=== PATIENT | female | born 1975 | race American Indian/Alaskan Native ===

== ENCOUNTER 2020-05-07 18:13 | Emergency (ER) | payer SELFPAY ==
[2020-05-07 19:07] LABS: Basophils # (Auto) 0.1 K/mm3 (0.0-0.1); Basophils % (Auto) 1.1 % (0.0-1.8); Eosinophils # (Auto) 0.1 K/mm3 (0.0-0.4); Eosinophils % (Auto) 1.2 % (0.0-4.3); Hematocrit 46.3 % (30.3-42.9); Hemoglobin 15.6 gm/dl (10.1-14.3); Lymphocytes # (Auto) 3.3 K/mm3 (1.2-5.4); Lymphocytes % (Auto) 42.2 % (13.4-35.0); Mean Corpuscular HGB Conc 34 % (30-34); Mean Corpuscular Volume 95 fl (79-97); Monocytes # (Auto) 0.7 K/mm3 (0.0-0.8); Monocytes % (Auto) 8.5 % (0.0-7.3); Platelet Count 175 K/mm3 (140-440); Red Blood Count 4.87 M/mm3 (3.65-5.03); Red Cell Distribution Width 12.7 % (13.2-15.2)
[2020-05-07 19:26] LABS: Bilirubin,Urine NEG (Negative); Blood,Urine NEG (Negative); Color,Urine Amber (Yellow); Mucus,Urine 3+ /HPF; WBC,Urine < 1.0 /HPF (0.0-6.0)
[2020-05-07 19:37] LABS: Alanine Aminotransferase 83 units/L (7-56); Albumin 3.6 g/dL (3.9-5); Blood Urea Nitrogen 11 mg/dL (7-17); Calcium 9.3 mg/dL (8.4-10.2); Hemolysis Index 75
[2020-05-07 19:42] LABS: BUN/Creatinine Ratio 22
[2020-05-07 23:06] VITALS: BP 121/98
[2020-05-07] MEDS ORDERED: MORPHINE 4 MG/1 ML INJ IV ONE (23:06)
[2020-05-07] MEDS ORDERED: SODIUM CHLORIDE 0.9% 1000 ML 1,000 ML IV ONE (23:06)
[2020-05-07] MEDS ORDERED: METOCLOPRAMIDE 10 MG/2 ML INJ IV ONE (23:06)
[2020-05-07] MEDS ORDERED: FAMOTIDINE 20 MG/2 ML INJ IV ONE (23:06)
--- NOTE | 2020-05-07 23:17 | Emergency Department Report ---
HPI - General Chief Complaint: Abdominal Pain Time Seen by Provider: 05/07/20 23:05 - HPI HPI: This is a 45-year-old female presents to the emergency department with complaint of upper abdominal pain, nausea and vomiting. The nausea and vomiting has been going on for the past 4 days. The upper abdominal pain has been going on for a week but worsened over the past 2 to 3 days. Eating or drinking anything seems to make the symptoms worse. No known alleviating factors. She has not taken anything for symptoms prior to presentation. Patient appears to have a previous history of gastritis from August of last year. No primary care physician. She is a tobacco smoker but denies any illicit drug use. No recent travel or sick contacts at home. ED Past Medical Hx - Past Medical History Additional medical history: gastritis, - Social History Smoking Status: Current Every Day Smoker - Medications Home Medications: Home Medications Medication Instructions Recorded Confirmed Last Taken Type Naproxen [Naprosyn] 500 mg PO BID PRN #30 tablet 09/17/19 Unknown Rx Sucralfate [Carafate] 1 gm PO ACHS 7 Days #28 udc 09/17/19 Unknown Rx Dicyclomine [Bentyl] 10 mg PO QID #20 capsule 05/08/20 Unknown Rx Omeprazole 20 mg PO DAILY #30 tab.rap. 05/08/20 Unknown Rx Ondansetron [Zofran Odt] 4 mg PO Q8HR PRN #10 tab.rapdis 05/08/20 Unknown Rx ED Review of Systems ROS: Stated complaint: ABD PAIN Other details as noted in HPI Comment: All other systems reviewed and negative Constitutional: denies: chills, fever Eyes: denies: eye pain, vision change ENT: denies: ear pain, throat pain Respiratory: denies: cough, shortness of breath Cardiovascular: denies: chest pain, palpitations Gastrointestinal: abdominal pain, nausea, vomiting Genitourinary: denies: dysuria, discharge Musculoskeletal: denies: back pain, arthralgia Skin: denies: rash, lesions Neurological: denies: headache, weakness Physical Exam - Physical Exam Vital Signs: Vital Signs 05/07/20 05/07/20 18:19 23:05 Temperature 98.8 F Pulse Rate 71 67 Respiratory 20 18 Rate Blood Pressure 125/76 Blood Pressure 121/98 [Left] O2 Sat by Pulse 99 96 Oximetry Physical Exam: GENERAL: The patient is well-developed well-nourished. HENT: Normocephalic. Atraumatic. Patient has moist mucous membranes. EYES: Extraocular motions are intact. NECK: Supple. Trachea is midline. CHEST/LUNGS: Clear to auscultation. There is no respiratory distress noted. HEART/CARDIOVASCULAR: Regular. There is no tachycardia. There is no murmur. ABDOMEN: Abdomen is soft. There is reproducible upper abdominal and epigastric tenderness to palpation. No guarding. Patient has normal bowel sounds. There is no abdominal distention. SKIN: Skin is warm and dry. NEURO: The patient is awake, alert, and oriented. The patient is cooperative. The patient has no focal neurologic deficits. Normal speech. MUSCULOSKELETAL: There is no tenderness or deformity. There is no limitation range of motion. ED Course Vital Signs 05/07/20 05/07/20 18:19 23:05 Temperature 98.8 F Pulse Rate 71 67 Respiratory 20 18 Rate Blood Pressure 125/76 Blood Pressure 121/98 [Left] O2 Sat by Pulse 99 96 Oximetry ED Medical Decision Making - Lab Data Result diagrams: 05/07/20 18:21 05/07/20 18:21 - Radiology Data Radiology results: report reviewed, image reviewed interpreted by me: Abdominal x-ray shows nonspecific nonobstructive bowel gas. There is increased stool volume. ULTRASOUND ABDOMEN, LIMITED (RIGHT UPPER QUADRANT) INDICATION: pain, elevated LFTs. COMPARISON: None available. FINDINGS: Pancreas: Visualized portion shows no significant abnormality. Liver: Normal. Gallbladder: Not visualized likely absent Bile ducts: Normal. Common Bile Duct measures 4 mm. Free fluid: None. Additional Findings: None. IMPRESSION: 1. No sonographic abnormality of the right upper quadrant. - Medical Decision Making This patient presents to the emergency department with a complaint of upper abdominal pain, nausea and vomiting. On examination she does have some reproducible upper abdominal and epigastric tenderness to palpation. However, the abdomen is soft, nondistended and nontoxic in appearance. Patient's labs have been unremarkable including CBC, metabolic panel and urinalysis. The only abnormality seen is some transaminitis. Abdominal x-ray shows nonspecific nonobstructive bowel gas. A right upper quadrant abdominal ultrasound was completed that did not show any acute process. Patient was given some IV fluid resuscitation, IV antiemetics and a dose of IV analgesia, as well as a dose of Pepcid. She was reevaluated multiple times over multiple hours and is feeling improved. She is able to pass an oral challenge. Her vital signs have been reassuring throughout her ED course including being afebrile. For all these reasons patient appears safe for discharge home at this time. She has been instructed to follow-up with a primary care physician and has been given an outpatient referral for gastroenterology. Due to the transaminitis, the patient has been instructed to avoid any alcohol or acetaminophen/Tylenol use. She will return to the emergency department with any worsening of her symptoms or with any acute distress. Critical Care Time: No Critical care attestation.: If time is entered above; I have spent that time in minutes in the direct care of this critically ill patient, excluding procedure time. ED Disposition Clinical Impression: Elevated liver enzymes Nausea & vomiting Qualifiers: Vomiting type: unspecified Vomiting Intractability: unspecified Qualified Code(s): R11.2 - Nausea with vomiting, unspecified Abdominal pain Qualifiers: Abdominal location: unspecified location Qualified Code(s): R10.9 - Unspecified abdominal pain Disposition: TO HOME OR SELFCARE Is pt being admited?: No Condition: Stable Instructions: Abdominal Pain, Adult, Nausea and Vomiting, Adult, Abdominal Pain (ED) Additional Instructions: Please follow-up with a primary care physician in the next few days. I am giving you a referral for [facility] to follow-up regarding your abdominal pain and the elevated liver enzymes found today. Because of the elevated liver enzymes, please avoid any alcohol use or acetaminophen/Tylenol use. Return to the emergency department with any worsening of your symptoms, new or concerning symptoms not addressed during this current emergency department visit, or with any acute distress. Prescriptions: Dicyclomine [Bentyl] 10 mg PO QID #20 capsule Omeprazole 20 mg PO DAILY #30 tab Ondansetron [Zofran Odt] 4 mg PO Q8HR PRN #10 tab.florenciadis PRN Reason: Nausea Referrals: DESI MCGEE MD [Primary Care Provider] - 3-5 Days [facility] [Provider Group] - 3-5 Days [facility] [Provider Group] - 3-5 Days DWAIN TURNER MD [Staff Physician] - 3-5 Days Time of Disposition: 01:20
--- NOTE | 2020-05-08 00:27 | XRay Report ---
ABDOMEN 2 VIEW(S) INDICATION / CLINICAL INFORMATION: Abd pain. COMPARISON: None available. FINDINGS: TUBES / LINES: None. BOWEL GAS PATTERN: Moderate constipation. No bowel obstruction. FREE AIR / EXTRALUMINAL GAS: None seen. ADDITIONAL FINDINGS: Gallbladder surgically absent. IMPRESSION: 1. Moderate constipation. 2. No significant abnormality. Signer Name: Pablito Abdul MD Signed: 05/08/2020 12:23 AM Workstation Name: [id number]
--- NOTE | 2020-05-08 00:59 | Ultrasound Report ---
ULTRASOUND ABDOMEN, LIMITED (RIGHT UPPER QUADRANT) INDICATION: pain, elevated LFTs. COMPARISON: None available. FINDINGS: Pancreas: Visualized portion shows no significant abnormality. Liver: Normal. Gallbladder: Not visualized likely absent Bile ducts: Normal. Common Bile Duct measures 4 mm. Free fluid: None. Additional Findings: None. IMPRESSION: 1. No sonographic abnormality of the right upper quadrant. Signer Name: Pablito Abdul MD Signed: 05/08/2020 12:55 AM Workstation Name: [id number]
== END 2020-05-08 01:52 | disposition home or self-care (01) ==
LOC: ED 18:13
DX: R11.2 Nausea with vomiting, unspecified (principal); R10.10 Upper abdominal pain, unspecified; R94.5 Abnormal results of liver function studies; F17.200 Nicotine dependence, unspecified, uncomplicated; Z79.899 Other long term (current) drug therapy
CPT/HCPCS: 36415; 74019; 76705; 80053; 81001; 83690; 85025; 96361; 96374; 96375; 99284; J2270; J2765; J7030